=== PATIENT | female | born 1970 | race Caucasian/White ===

== ENCOUNTER → 2025-01-14 09:13 | Outpatient (CLI) | payer OTHER, SELFPAY ==
[2025-01-14 10:07] LABS: Influenza A - CEPHEID Flu A NEGATIVE (NEGATIVE); Influenza B - CEPHEID Flu B NEGATIVE (NEGATIVE)
[2025-01-14 10:11] LABS: COVID-19 CEPHEID 4-PLEX PCR POSITIVE (Negative)
== END ==
PROVIDERS: Visit Provider Nurse Practitioner Family
DX: R05.1 Acute cough (principal)
CPT/HCPCS: 87637

== ENCOUNTER → 2025-01-14 09:40 | Outpatient (CLI) | payer OTHER, SELFPAY ==
--- NOTE | 2025-01-14 09:42 | DI.RAD.S_ITS ---
PROCEDURE: XR CHEST 2V INDICATIONS: Cough TECHNIQUE: 2 views of the chest were acquired. COMPARISON: None. FINDINGS: Heart, mediastinum and pulmonary vascular: Heart is normal in size and configuration. Mediastinum is unremarkable. Pulmonary vascular is normal. Lungs: Clear Pleural spaces: Normal-no effusions or pneumothorax. IMPRESSION: Normal chest. Dictated by: Hunter Spencer M.D. on 01/15/2025 at 11:53 Approved by: Hunter Spencer M.D. on 01/15/2025 at 11:53
== END ==
PROVIDERS: Referring Provider Nurse Practitioner Family; Visit Provider Nurse Practitioner Family
DX: R05.1 Acute cough (principal)
CPT/HCPCS: 71046; 87637

== ENCOUNTER → 2025-01-28 18:27 | Outpatient (CLI) | payer OTHER, SELFPAY ==
[2025-01-28 19:33] LABS: Influenza A - CEPHEID Flu A NEGATIVE (NEGATIVE); Influenza B - CEPHEID Flu B NEGATIVE (NEGATIVE)
[2025-01-28 19:35] LABS: COVID-19 CEPHEID 4-PLEX PCR Negative (Negative)
== END ==
PROVIDERS: Visit Provider Physician Assistant
DX: R05.1 Acute cough (principal)
CPT/HCPCS: 87637

== ENCOUNTER → 2025-01-28 18:55 | Outpatient (CLI) | payer OTHER, SELFPAY ==
--- NOTE | 2025-01-28 18:57 | DI.RAD.S_ITS ---
PROCEDURE: XR CHEST 2V INDICATIONS: cough b/l wheezing/crackles x 1 mo TECHNIQUE: 2 views of the chest were acquired. COMPARISON: , CR, XR CHEST 2V, 01/14/2025, 8:52. FINDINGS: Surgical changes and devices: None. Lungs and pleura: Lungs are clear. No pleural effusions or pneumothorax. Mediastinum: Mediastinal contours are normal. Heart size is normal. Bones and chest wall: No suspicious bony abnormalities. Soft tissues appear unremarkable. IMPRESSION: No acute cardiopulmonary abnormality is seen. Dictated by: Sharonda Venegas M.D. on 01/28/2025 at 19:15 Approved by: Sharonda Venegas M.D. on 01/28/2025 at 19:16
== END ==
PROVIDERS: Referring Provider Physician Assistant; Visit Provider Physician Assistant
DX: J06.9 Acute upper respiratory infection, unspecified (principal); R05.1 Acute cough
CPT/HCPCS: 71046; 87637